=== PATIENT | female | born 1935 | race Caucasian/White ===

== ENCOUNTER 2018-11-25 02:38 | Emergency (ER) | payer OTHER ==
[~2018-11-25] VITALS: Ht 165.1 cm; Wt 72.6 kg
[2018-11-25] MEDS ORDERED: LISINOPRIL-HCT1 EAC2 PO (02:45)
[2018-11-25] MEDS ORDERED: LEVOTHYROXINE112 MCG PO (02:45)
[2018-11-25] MEDS ORDERED: METFORMIN HCL1000 MG PO (02:45)
[2018-11-25] MEDS ORDERED: ASA81BEC PO (02:46)
[2018-11-25] MEDS ORDERED: ATORVASTATIN CA20 MG PO (02:46)
[2018-11-25] MEDS ORDERED: TOPROL XL50 MG PO (02:46)
[2018-11-25] MEDS ORDERED: NORVASC5 MG PO (02:46)
[2018-11-25 03:43] LABS: ABSOLUTE NEUTROPHILS 10.5 thou/uL (1.4-8.2); BASOPHILS 0.7 % (0.0-2.0); EOSINOPHILS 0.6 % (0.0-3.0); HEMATOCRIT 40.5 % (37.0-47.0); HEMOGLOBIN 13.5 gm/dL (12.0-15.0); LYMPHOCYTES 11.7 % (24.0-44.0); MCH 28.3 pg (26.0-34.0); MCHC 33.3 g/dL (28.0-37.0); MCV 85.1 fL (80.0-100.0); MONOCYTES 7.6 % (1.0-8.0); PLATELET COUNT 280 thou/uL (150-400); POLYS 79.4 % (36.0-66.0); RBC 4.76 mil/uL (4.20-5.00); RDW 13.9 % (10.5-14.5); WBC 13.2 thou/uL (4.0-11.0)
[2018-11-25 03:50] LABS: CALCIUM 9.3 mg/dL (8.5-10.1); CREATININE 0.9 mg/dL (0.6-1.0); POTASSIUM 3.7 mmol/L (3.5-5.1)
[2018-11-25 03:56] LABS: ALBUMIN 3.6 g/dL (3.4-5.0); TOTAL BILIRUBIN 1.3 mg/dL (<0.1-1.0); TOTAL PROTEIN 7.6 g/dL (6.4-8.2)
[2018-11-25 05:21] VITALS: BP 138/58
== END 2018-11-25 05:22 | disposition home or self-care (01) ==
LOC: ER 02:38
PROVIDERS: Emergency Medicine
DX: M25.561 Pain in right knee (principal); I10 Essential (primary) hypertension; E11.9 Type 2 diabetes mellitus without complications; E78.5 Hyperlipidemia, unspecified; E03.9 Hypothyroidism, unspecified; Z85.3 Personal history of malignant neoplasm of breast; Z90.11 Acquired absence of right breast and nipple

== ENCOUNTER 2021-03-11 06:28 | Emergency (ER) | payer MEDICARE ==
[~2021-03-11] VITALS: Ht 165.1 cm; Wt 85.4 kg
--- NOTE | ~2021-03-11 | EMS ---
[place] [id number] EMS Patient Care Report Name: LIZANDRO COLES Room #: DEP ARON Self#: [id number] Admission: 03/11/21 Attend Phys: Discharge: 03/11/21 Date of : 35 Report #: [id number] THIS REPORT FOR: //name// Report Transmitted: 03/12/2021 12:51 EMS Care Summary [place], [place] Incident [id number] @ 03/11/2021 05:57 Incident Location [id number] [place] [address] Patient LIZANDRO COLES Female, 86 Years 1935 Patient Address [address] [place] [address] Patient History Diabetes,Hypertension (HTN),Hyperlipidemia, Chief Complaint L knee pain Disposition Transported No Lights/[place] Reason Sick Person Transported To [facility] Narrative pt found seated in recliner chair, a&o. she c/o sudden onset L knee pain, no traumatic injury. pt has hx of L femur fx several years ago. no other surgery on L leg. pt to be eval at [facility]. pt moved to wheelchair and out to cot, transport w/o change in POC. report to staff on arrival. Initial Vitals @06:14P: 94,R: 18,BP: 216/104,Pain: 10/10,GCS: 15,SpO2: 94,Revised Trauma: 12, [address] [place] [address] EMS Patient Care Report Name: LIZANDRO COLES Room #: DEP [facility].#: [id number] Admission: 03/11/21 Attend Phys: Discharge: 03/11/21 Date of : 35 Report #: [id number] Assessments @06:05MENTAL:No Abnormalities,SKIN:No Abnormalities,HEENT:Head/Face: No Abnormalities,LUNG SOUNDS:ABDOMEN:PELVIS//GI:EXTREMITIES:Left Leg: Other,PULSE:NEURO:No Abnormalities, Impression Extremity Pain Procedures @06:05 ALS Assessment Response: Unchanged @06:09 Stretcher Response: Unchanged Timeline 05:56,Call Received 05:56,Dispatch Notified 05:57,Dispatched 05:58,En Route 06:04,On Scene 06:05,At Patient 06:05,ALS Assessment,Response: Unchanged 06:09,Stretcher,Response: Unchanged 06:14,BP: 216/104 M,PULSE: 94,RR: 18 R,SPO2: 94 Ox,ETCO2: ,BG: ,PAIN: 10,GCS: 15, 06:16,Depart Scene 06:25,At Destination 06:33,Call Closed Disclaimer [email or web address] Copyright 2021 [employer] This EMS Care Summary contains data elements from the applicable legal record (which may be displayed differently). It is designed to provide pertinent information for the following purposes: continuity of care, clinical quality, and state data reporting. The complete legal record is available to ED staff and administrators of the receiving hospital in [facility]'s Patient Tracker. All data is provided "as is."
[~2021-03-11 06:28] MED LIST: ASA81BEC PO; ATORVASTATIN CA20 MG PO; LEVOTHYROXINE112 MCG PO; LISINOPRIL-HCT1 EAC2 PO; METFORMIN HCL1000 MG PO; NORVASC5 MG PO; TOPROL XL50 MG PO
[2021-03-11] MEDS ORDERED: NAPROSYN500 MG PO (07:57)
[2021-03-11 08:33] VITALS: BP 155/70
== END 2021-03-11 08:34 | disposition home or self-care (01) ==
LOC: ER 06:28
DX: M25.562 Pain in left knee (principal); I10 Essential (primary) hypertension; E11.9 Type 2 diabetes mellitus without complications; Z98.890 Other specified postprocedural states; Z88.2 Allergy status to sulfonamides; Z91.02 Food additives allergy status